=== PATIENT | male | born 1970 | race African-American/Black ===

== ENCOUNTER 2017-08-11 14:36 | Emergency (ER) | payer SELFPAY ==
[2017-08-11 14:52] VITALS: BP 151/100
--- NOTE | 2017-08-11 15:22 | ER Document Report ---
ED Eye Complaint - General Chief Complaint: Eye Problem Stated Complaint: LEFT EYE PROBLEM Time Seen by Provider: 08/11/17 14:52 Mode of Arrival: Ambulatory Information source: Patient Notes: This 46-year-old male patient comes emergency room with swelling and redness to the lower half of his left eye. He reports 2 months ago his entire turned red and felt like there was something in it. It lasted about 2 weeks. What he describes sounds very much like a subconjunctival hemorrhage at that time. He reports redness started again on 08/03/2017 and went away on 08/05/2017. This was all asymptomatic, no pain no H. He woke up on August 08, 2017 with his left eye swollen in the lower half, reddened, conjunctiva bulging out beyond the lower eyelids. There is a watery discharge. TRAVEL OUTSIDE OF THE [place] IN LAST 30 DAYS: No - Related Data Allergies/Adverse Reactions: No Known Allergies Allergy (Verified 08/11/17 14:38) Home Medications: Current Home Medications Atorvastatin Calcium 40 mg PO DAILY 08/11/17 [History] Carvedilol 12.5 mg PO BID 08/11/17 [History] Furosemide [Lasix] 40 mg PO DAILY 08/11/17 [History] Losartan Potassium 50 mg PO DAILY 08/11/17 [History] Spironolactone 50 mg PO DAILY 08/11/17 [History] Past Medical History - General Information source: Patient - Social History Smoking Status: Never Smoker Cigarette use (# per day): No Chew tobacco use (# tins/day): No Smoking Education Provided: No Frequency of alcohol use: Heavy - 6 beers per day Drug Abuse: None Occupation: [employer] [place] Lives with: Family Family History: Reviewed & Not Pertinent Patient has suicidal ideation: No Patient has homicidal ideation: No - Past Medical History Cardiac Medical History: Reports: Hx Congestive Heart Failure, Hx Hypertension Pulmonary Medical History: Reports: None EENT Medical History: Reports: None Neurological Medical History: Reports: None Endocrine Medical History: Reports: Hx Diabetes Mellitus Type 2 Renal/ Medical History: Reports: None GI Medical History: Reports: None Musculoskeltal Medical History: Reports None Skin Medical History: Reports None Psychiatric Medical History: Reports: None Surgical Hx: Negative Review of Systems - Review of Systems Constitutional: No symptoms reported EENT: See HPI Cardiovascular: No symptoms reported Respiratory: No symptoms reported Gastrointestinal: No symptoms reported Genitourinary: No symptoms reported Musculoskeletal: No symptoms reported Skin: No symptoms reported Hematologic/Lymphatic: No symptoms reported Neurological/Psychological: No symptoms reported Physical Exam - Vital signs Vitals: Temp Pulse Resp BP Pulse Ox 98.3 F 102 H 14 151/100 H 97 08/11/17 14:50 08/11/17 14:50 08/11/17 14:50 08/11/17 14:50 08/11/17 14:50 Interpretation: Hypertensive - General General appearance: Appears well, Alert In distress: None - HEENT Head: Normocephalic, Atraumatic Eyes: Normal, Other - The left eye lower half of the conjunctiva is bulging out beyond the lower lid. It is erythematous. It does go up to the limbus but does not cross the limbus. Upper half of the eye and toward the lateral aspect has some erythema. There is a watery discharge. The eyelid itself is not swollen at all. There is no tenderness. The patient's vision is intact. Pupils are equal and reactive. Pupils: PERRL - Respiratory Respiratory status: Cyanosis Breath sounds: Normal - Cardiovascular Rhythm: Regular Heart sounds: Normal auscultation Murmur: No - Abdominal Inspection: Obese Bowel sounds: Normal Tenderness: Nontender - Back Back: Normal - Extremities General upper extremity: Normal inspection General lower extremity: Normal inspection - Neurological Neuro grossly intact: Yes - Psychological Associated symptoms: Normal affect, Normal mood - Skin Skin Temperature: Warm Skin Moisture: Dry Skin Color: Normal Course - Vital Signs Vital signs: Temp Pulse Resp BP Pulse Ox 98.3 F 102 H 14 151/100 H 97 08/11/17 14:50 08/11/17 14:50 08/11/17 14:50 08/11/17 14:50 08/11/17 14:50 - Consults Dr. Anaya Time consulted: 15:40 Consulted provider: follow-up in office - Start erythromycin ointment to use when sleeping. Lubrication during the day. Call Sunday morning for follow-up appointment on Sunday. Discharge - Discharge Clinical Impression: Chemosis of left conjunctiva Condition: Stable Disposition: HOME, SELF-CARE Additional Instructions: Chemosis: The condition in your eye is known as chemosis -- a severe sudden swelling over the globe of the eye. While uncomfortable and quite frightening, it's not a threat to your eye. Chemosis usually occurs when a small particle of pollen ( or other plant or animal material) gets into the eye. The swelling of the membrane lifts it up like a giant blister. The usual treatment is antihistamine and/or decongestant eyedrops. In severe or recurrent cases, cortisone eyedrops may be required. The swelling will usually resolve in an hour or two. Do not rub the eye, and don't put any other medications into it. If you wear contact lenses, clean them thoroughly, but don't re-insert them until tomorrow. You should return if the swelling does not improve, or if eye pain, fever, or loss of vision develops. //////////////////////////////////////////////////////////////////////////////// //////////////////////////////////////////////////////////////////////////////// ///////////////// Place a ribbon of the erythromycin ointment in the left eye whenever you sleep, this includes naps during the day or at bedtime. Use an eye lubricant in the eye throughout the day when you are up. These are available [id number] at any drugstore. Avoid wind and bright sunlight. Call Dr. Anaya at [facility] Sunday morning to schedule a Sunday appointment. RETURN TO THE EMERGENCY ROOM IF ANY NEW OR WORSENING SYMPTOMS. Referrals: [facility] [Provider Group] - 08/13/17 (Call Sunday morning at 8 AM to schedule an appointment on Sunday to see Dr. Anaya)
[2017-08-11] MEDS ORDERED: ERYTHROMYCIN 0.5% OPH OINTMENT 3.5 GM (ER DISP) OS PRN (15:47)
== END 2017-08-11 15:59 | disposition home or self-care (01) ==
LOC: ER 14:36
DX: H11.422 Conjunctival edema, left eye (principal); E11.9 Type 2 diabetes mellitus without complications; I10 Essential (primary) hypertension
CPT/HCPCS: 99283